=== PATIENT | male | born 1955 | race Caucasian/White ===

== ENCOUNTER → 2016-10-01 | Outpatient (CLI) | payer OTHER ==
--- NOTE | 2016-10-01 17:24 | DX ---
Left Knee, 3 Views History: Pain, runner. Findings: No patellofemoral joint space narrowing or subluxation. No significant soft tissue swelling . No significant tibiofemoral joint space narrowing. No joint effusion on the lateral view. No signif icant osteophytes. No definite fracture. No destructive osseous lesions. Impression: 1. No definite fracture or significant degenerative changes. 2. No significant joint space narrowing.
== END ==
LOC: FIMAGING 16:45
PROVIDERS: ATTEND Family Medicine Sports Medicine
DX: M25.562 Pain in left knee (principal)